=== PATIENT | female | born 1980 | race Caucasian/White ===

== ENCOUNTER 2017-05-06 10:55 | Observation (INO) | payer OTHER ==
[~2017-05-06] VITALS: Ht 162.6 cm; Wt 65.6 kg
--- NOTE | ~2017-05-06 | CO ---
Unit #: [id number] #: [id number] Patient: EDDI ELLISON [id number] [facility] [address] [facility]. [place], [place] [address] [id number] I MR#: [id number] NAME: EDDI ELLISON ROOM: 311 Age: 37 Sex: F Admission Date: 05/06/2017 : 1980 Attending Physician: Orquidea Calero M.D. Primary Care Physician: Primary Care Physician No Consultation Date: 05/07/2017 CONSULTATION REPORT REASON FOR CONSULTATION Overdose, altered mental status, delirium, confusion, polysubstance abuse. HISTORY OF PRESENT ILLNESS Toma Ellison is a 37-year-old female, seen in room 311 bed 1 on 05/07/2017 at [facility]. The patient dressed in hospital attire, lying comfortably in bed. The patient was receiving IV fluids. The patient reports that she had a seizure and that is why she is here, but the patient when asked about drug abuse reported that she has not used any drugs or alcohol. She reported that she was on multiple medication, but then she was incarcerated. After she was discharged, she was on no medication. The patient reported that she was on Vistaril, Remeron, Prozac, and Neurontin. The patient denied suicidal ideation or suicide attempt. The patient according to the intake report was found in room with unresponsive, possible IV drug abuse. The patient was staying with a friend at a hotel and the police was called for unresponsiveness. The patient was found unresponsive with a needle sticking to her left arm. The patient received Narcan and became awake. The patient's potassium was low 2.8 at the time of admission. The patient's urine drug screen was positive for multiple drugs, benzodiazepine, cocaine, amphetamine, marijuana, and opiate. The patient denied use of any IV drug use; however, the patient at this time denied any suicidal or homicidal ideation, but wanted to go back on her medication for depression and anxiety. PAST PSYCHIATRIC HISTORY Remarkable for history of depression and anxiety. The patient reports that she was on multiple drugs for that history of polysubstance abuse. The patient denied any inpatient psychiatric treatment. MEDICAL HISTORY AND MEDICATION HISTORY The patient is on Prozac, Humalog, Remeron, Combivent, Topamax, Xanax. Medical history is remarkable for history of insulin-dependent diabetes mellitus, anxiety, depression, polysubstance abuse. FAMILY HISTORY AND SOCIAL HISTORY Remarkable for poor support system. Denied any history of abuse. History of polysubstance abuse as mentioned above. REVIEW OF SYSTEMS Complete review of systems is unremarkable except as mentioned above. MENTAL STATUS EXAMINATION The patient's vital signs; temperature 98.3, pulse 61, respirations 16, Unit #: [id number] #: [id number] Patient: EDDI ELLISON blood pressure 96/53 oxygen saturation 99%. General appearance; the patient dressed casually. The patient's attention span and concentration, fair. Speech; regular rate and coherent. Oriented in time, place, and person. Mood and affect were labile. Thought process, coherent. Thought content, the patient denied any thoughts of harming self or others. Denied any hallucination. Recent and remote memory, fair. Language, intact. Fund of knowledge, fair. Insight and judgment, fair to slightly impaired. DIAGNOSES Psychiatric: Delirium, F05, resolved; opioid use disorder, severe, F11.20; amphetamine use disorder, severe, F15.20; cannabis abuse, moderate, F12.20. Secondary diagnosis: Deferred. Medical diagnosis: Please refer to H and P. Stressors: Psychosocial stressor. ASSESSMENT AND PLAN 1. Supportive psychotherapy and psychoeducation provided to the patient. 2. Educated about benefits and side effects of medication and course and prognosis of illness. 3. The patient currently denied any suicidal or homicidal ideation. Therefore, plan to stabilize the patient and consider a plan to follow up in outpatient program at [facility] in [facility] level of care. 4. Recommending to resume the patient's medication slowly such as Prozac 40 mg daily, but avoid Xanax because of history of substance abuse. Please feel free to call if any questions, telephone [phone]. Dictated by..Rajni Arce/milagros TD: 05/07/2017 20:28 JOB #: [id number] CONSULTATION REPORT Page 1 of 1 X Mark Chaudhary MD CONSULTATION REPORT
--- NOTE | ~2017-05-06 | EKG ---
PATIENT: EDDI ELLISON UNIT #: [id number] Ventricular Rate: 122 BPM Atrial Rate: 122 BPM P-R Interval: 122 ms QRS Duration: 86 ms Q-T Interval: 322 ms QTC Calculation(Bezet): 458 ms P [place]: 71 degrees Calculated R [place]: 44 degrees Calculated T [place]: 105 degrees Diagnosis Line: Sinus tachycardia Diagnosis Line: Nonspecific T wave abnormality Diagnosis Line: Abnormal ECG Diagnosis Line: When compared with ECG of 03-JUN-2016 13:44, Diagnosis Line: T wave inversion now evident in Lateral leads Diagnosis Line: Confirmed by MARILYN BARNES MD ([id number]) on Diagnosis Line: 05/06/2017 5:10:30 PM INTERPRETING MD: MOLLY VIGIL
--- NOTE | ~2017-05-06 | HP ---
Unit #: [id number] #: [id number] Patient: EDDI ELLISON [id number] [address] [place], [place] [address] [id number] I MR#: [id number] NAME: EDDI ELLISON ROOM: 311 Age: 37 Sex: F Admission Date: 05/06/2017 : 1980 Attending Physician: Michelle Hernandez M.D. Primary Care Physician: No Primary Care Physician HISTORY AND PHYSICAL CHIEF COMPLAINT Altered mental status. HISTORY OF PRESENT ILLNESS The patient is a 37-year-old female with a history of insulin-dependent diabetes and IV drug abuse, brought to the emergency room with unresponsiveness. The patient was staying with a friend at the hotel and the police were called for unresponsiveness. On arrival the patient was found unresponsive with the needle in the left arm. The patient received the Narcan and became more awake in the emergency room. The patient's potassium is low, down to 2.8 and patient is positive with the urine drug screen for benzodiazepines, cocaine, amphetamines, marijuana and opiates. The patient stated the patient is not using IV drugs for awhile and used the drugs by snorting the last few days. The patient is being admitted for the above reasons, denies any fever, denies any chills, denies any nausea and vomiting, feels weak. PAST MEDICAL HISTORY History of insulin dependent diabetes, anxiety, depression and polysubstance abuse. PAST SURGICAL HISTORY History of a , tonsillectomy, cholecystectomy. ALLERGIES No known drug allergies. HOME MEDICATION Prozac, Humalog, Remeron, Combivent, Topamax and Xanax. FAMILY HISTORY Positive for diabetes and coronary artery disease. SOCIAL HISTORY Patient smokes about half a pack per day, denies alcohol, injects heroin IV. REVIEW OF SYMPTOMS Positive for the drug abuse and weakness and denies any fever, denies any chills, denies any nausea and vomiting, denies any abdominal pain and other systems are reviewed and are negative. PHYSICAL EXAMINATION GENERAL APPEARANCE: On examination the patient is lying on a bed not in Unit #: [id number] #: [id number] Patient: EDDI ELLISON acute distress. VITAL SIGNS: Temperature 98.5, pulse 116, respiratory rate 11, blood pressure 131/85, sating 96% at room air. HEENT: Head atraumatic and normocephalic. Pupils equal, round and reacting to light and accommodation. Dry mucous membrane. NECK: Supple. LUNGS: Clear to auscultation bilaterally. HEART: Regular rate and rhythm. ABDOMEN: Soft, positive bowel sounds. EXTREMITIES: Positive for the track smith. NEUROLOGIC: Awake, alert and oriented. PSYCHIATRIC: Appears depressed. DIAGNOSTIC STUDIES LABORATORY DATA: Blood sugar is 151. Beta hCG is negative. Sodium 136, potassium 2.8, chloride 102, bicarb 25, glucose 156, BUN 15, creatinine 1, AST 154, ALT 46, alkaline phosphatase 55, WBC 20.2, hemoglobin 12.3, hematocrit 36.3, platelets 323, neutrophils 87%. Urine drug screen is positive for benzodiazepines, cocaine, amphetamines, marijuana and opiates. Lactic acid is 1. UA shows trace leukocyte esterase, 1+ protein, and urine WBCs 25 to 25, 1+ urine bacteria. IMAGING: Chest x-ray shows pulmonary hyperinflation, otherwise normal chest. ASSESSMENT 1. Altered mental status. 2. Polysubstance abuse. 3. Hypokalemia. 4. Probably urinary tract infection. PLAN Plan to admit to observation with the telemetry. Continue with IV antibiotics with the Rocephin, replace the potassium per protocol and will have the psych evaluation and continue with the low dose sliding scale and Accu-Cheks and hold the benzodiazepines and narcotics and further recommendations will follow. Dictated by Rajni Wiggins/cuauhtemoc TD: 05/06/2017 20:40 JOB #: [id number] Unit #: [id number] #: [id number] Patient: EDDI ELLISON HISTORY AND PHYSICAL Page 1 of 1 X MICHELLE HERNANDEZ MD HISTORY AND PHYSICAL
--- NOTE | ~2017-05-06 | DS ---
Unit #: [id number] #: [id number] Patient: EDDI ELLISON [id number] [address] [address] [id number] I MR#: [id number] NAME: EDDI ELLISON ROOM: 311 Age: 37 Sex: F Admission Date: 05/06/2017 : 1980 Discharge Date: 05/07/2017 Attending Physician: Orquidea Calero M.D. Primary Care Physician: No Primary Care Physician DISCHARGE SUMMARY PRINCIPAL DIAGNOSES 1. Metabolic encephalopathy secondary to number two. 2. Unintentional polysubstance overdose, including benzodiazepines, cocaine, amphetamine, marijuana and opiates. 3. Urinary tract infection with pending urine culture. 4. Hypokalemia. 5. Dtzyj-tf-mwnhoyi migraine headache. 6. Non anion gap metabolic acidosis. 7. Hyperkalemia. 8. Mild transaminitis with pending viral hepatitis panel. 9. Insulin dependent diabetes mellitus. 10. Anxiety and depression. 11. Tobaccoism. CONSULTANTS Dr. Chaudhary, psychiatry. DIAGNOSTIC DATA IMAGING: Chest x-ray on 05/06/2017 with pulmonary hyperinflation. Otherwise no acute findings. CLINICAL HISTORY/HOSPITAL COURSE Ms. Ellison is a 77-year-old female brought to the emergency department after being found unresponsive at a hotel with a needle in her arm. She did respond to Narcan and brought to the ICU for further evaluation. The patient demonstrated altered mental status in the emergency department. Blood work also revealed significant hypokalemia and the patient was subsequently placed in observation for evaluation. Today the patient is awake, alert and complaining of migraine headache. Otherwise she is eating and ambulating to the restroom. This morning, after being placed on IV fluids with potassium, she is mildly hyperkalemia. Fluids have been discontinued. The patient is pending repeat potassium level. I will note at this time the patient is currently receiving this lab. I am going to treat her migraine headache with a single dose of Imitrex and assuming headache is improved she can be discharged home later today. The patient was seen in consultation by Dr. Chaudhary, who recommended outpatient drug rehab. The patient also appears to have urinary tract infection on urinalysis, but urine culture is pending. She has been treated with Rocephin during hospitalization and will complete a total of three days of antibiotics on Unit #: [id number] #: [id number] Patient: EDDI ELLISON an outpatient basis. DISCHARGE CONDITION Stable. DISPOSITION Discharged to home. DISCHARGE MEDICATIONS 1. Bactrim DS 1 b.i.d. for 1 day. 2. Combivent Respimat 1-2 tablets b.i.d. p.r.n. shortness of air. 3. Topamax 200 mg b.i.d. 4. Prozac 40 mg daily. 5. Remeron 45 mg at bedtime. 6. Humalog sliding scale with meals. DIET The patient is instructed to follow a constant carb diet. ACTIVITY She can increase her activity as tolerated. She is to refrain from any further illicit drug use or tobacco use. FOLLOWUP The patient can follow up with Dr. Lynn in one week. Dictated by... Orquidea Calero M.D. MAILE/dayami TD: 05/08/2017 13:10 JOB #: [id number] DISCHARGE SUMMARY Page 1 of 1 X Orquidea Calero MD DISCHARGE SUMMARY
--- NOTE | ~2017-05-06 | CR72 ---
[facility] A Service of [facility] RADIOLOGY TEXT RESULTS PATIENT: EDDI ELLISON LOCATION: [facility] 311-01 : [birth year] UNIT #: [id number] AGE: [address]: Orquidea Calero MD SEX: F ORDER DR: [id number] [facility] [address]. [place], [place] [address] [id number] MR#: [id number] Acc #: [id number] NAME: EDDI ELLISON : 1980 SEX: F STUDY DATE/TIME: 05/06/2017 11:19 UNIT: NIKUNJ ROOM: STUDY DESCRIPTION: CR Chest Single View Portable Attending Physician: Marek Sen M.D. Ordering Physician: Marek Sen M.D. Primary Care Physician: No Primary Care Physician MEDICAL IMAGING REPORT This report is preliminary unless electronic signature is present EXAM Chest portable 05/06/2017 1119 hours HISTORY 37-year-old woman with shortness of air today, overdose for 1 day, altered mental status. History of asthma and smoking. COMPARISON 06/03/2016 FINDINGS Portable upright chest demonstrates normal cardiac, mediastinal and hilar contours. The lungs are hyperinflated but clear. No effusions. IMPRESSION Pulmonary hyperinflation otherwise normal chest. Dictated by... Florina Stock M.D. THIS IS AN ELECTRONICALLY VERIFIED REPORT Florina Stock M.D. at 05/07/2017 8:53 AM ELIN/kristofer TD: 05/06/2017 15:55 JOB #: [id number] MEDICAL IMAGING REPORT Page 1 of 1 COPY
[~2017-05-06 10:55] MED LIST: AMBIEN10 MG PO; BACTRIM DS TABL1 TA1 PO; CLEOCIN150 M1 PO; DAKIN'S MODIF1000 ML EXT; HUMALOG100 U/M1; HUMALOG100 U/M2 SUBQ; HUMALOG100 U/ML SUBQ; LANTUS100 U/ML; LANTUS100 U/ML SUBQ; LANTUS100 UNITS/ SUBQ; LEVAQUIN PO; LORTAB 7.5-3251 EACH PO; NEURONTIN800 MG PO; NICOTINE TRANSDE7 MG EXT; PROZAC40 M1 PO; PROZAC40 MG PO; REMERON45 MG PO; TOPAMAX PO; TYLENOL #3 PO; XANAX2 MG PO
[2017-05-06 11:43] LABS: BASOPHIL# 0.1 X10e3 (0-0.3); BASOPHIL% 0.2 % (0-2.5); EOSINOPHIL# 0.1 X10e3 (0-0.7); EOSINOPHIL% 0.3 % (0.0-7.0); HEMATOCRIT 36.3 % (35.0-45.0); HEMOGLOBIN 12.3 gm/dL (12.0-16.0); LYMPHOCYTE# 1.9 X10e3 (1.0-3.5); LYMPHOCYTE% 9.5 % (17.0-45.0); MEAN CELL VOLUME 88.1 FL (83-96); MEAN CORPUSCULAR HGB CONC 34.1 g/dL (30-36); MEAN PLATELET VOLUME 8.8 FL (6.5-11.5); MONOCYTE% 4.7 % (3.0-12.0); NEUTROPHIL# 17.3 X10e3 (1.5-7.1); NEUTROPHIL% 85.3 % (40-75); PLATELET COUNT 323 X10e3 (140-420); RED BLOOD COUNT 4.11 X10e (3.90-5.30); RED CELL DISTRIBUTION WIDTH 15.8 % (11.0-15.5); WHITE BLOOD COUNT 20.2 X10e3 (4.0-10.5)
[2017-05-06 11:44] LABS: DIFF IND YES
[2017-05-06 12:12] LABS: ALBUMIN SERUM 4.1 g/dL (3.5-5.0); BILIRUBIN, DIRECT 0.1 mg/dL (0.0-0.2); BILIRUBIN,INDIRECT 0.6 mg/dL (0.0-0.9); BILIRUBIN,TOTAL 0.7 mg/dL (0.2-2.0); CALCIUM SERUM 8.8 mg/dL (8.4-10.2); PROTEIN TOTAL SERUM 7.9 g/dL (6.0-8.3)
[2017-05-06 12:13] LABS: POTASSIUM 2.8 mmol/L (3.5-5.1)
[2017-05-06 13:00] LABS: ANISOCYTOSIS SL; PLATELET ESTIMATE NORMAL (NORMAL)
[2017-05-06 13:27] LABS: URINE SOURCE CLEAN CATCH
[2017-05-06 13:49] LABS: AMPHETAMINE POS (NEG); BARBITURATES NEG (NEG); BENZODIAZEPINES POS (NEG); COCAINE POS (NEG); MARIJUANA POS (NEG); OPIATES POS (NEG); TRICYCLIC ANTIDEPRESSANTS NEG (NEG); U METHADONE NEG (NEG)
[2017-05-06] MEDS ORDERED: PATIENT'S PHARMACY (14:10)
[2017-05-06] MEDS ORDERED: COMBIVENT RESPIM4 GM INH (14:10)
[2017-05-06] MEDS ORDERED: PROZAC40 M1 PO (14:10)
[2017-05-06] MEDS ORDERED: HUMALOG100 UNIT/1 (14:11)
[2017-05-06] MEDS ORDERED: TOPAMAX PO (14:11)
[2017-05-06] MEDS ORDERED: REMERON PO (14:11)
[2017-05-06] MEDS ORDERED: ALPRAZOLAM (14:13)
[2017-05-06 14:17] LABS: URINE APPEARANCE CLEAR; URINE BILIRUBIN NEG (NEG); URINE BLOOD 1+ (NEG); URINE COLOR YELLOW; URINE GLUCOSE NEG (NEG); URINE KETONE 1+ (NEG); URINE LEUKOCYTE ESTERASE TRACE (NEG); URINE NITRATE NEG (NEG); URINE PROTEIN 1+ (NEG); URINE SPECIFIC GRAVITY 1.022 (1.003-1.035); URINE UROBILINOGEN 0.2 MG/DL (NEG)
[2017-05-06 14:22] LABS: CULTURE INDICATED? YES; URINE BACTERIA AUWI 1+ (NEGATIVE); URINE SQUAMOUS EPITHELIAL CELL OCC /[HPF]; UWBCS1 AUWI 25-50 (0-5)
[2017-05-07 06:34] LABS: BASOPHIL% 0.5 % (0-2.5); EOSINOPHIL# 0.1 X10e3 (0-0.7); EOSINOPHIL% 1.6 % (0.0-7.0); HEMATOCRIT 27.2 % (35.0-45.0); LYMPHOCYTE# 3.2 X10e3 (1.0-3.5); LYMPHOCYTE% 38.6 % (17.0-45.0); MEAN CORPUSCULAR HEMOGLOBIN 30.5 PG (28-34); MEAN CORPUSCULAR HGB CONC 33.5 g/dL (30-36); MEAN PLATELET VOLUME 9.5 FL (6.5-11.5); MONOCYTE# 0.6 X10e3 (0-1.0); MONOCYTE% 7.3 % (3.0-12.0); NEUTROPHIL# 4.3 X10e3 (1.5-7.1); PLATELET COUNT 233 X10e3 (140-420); RED BLOOD COUNT 2.99 X10e (3.90-5.30); RED CELL DISTRIBUTION WIDTH 15.8 % (11.0-15.5)
[2017-05-07 06:50] LABS: CALCIUM SERUM 7.4 mg/dL (8.4-10.2); CREATININE SERUM 0.5 mg/dL (0.6-1.4); GLOM FILT RATE Estimated 125.4 mL/min (>60)
[2017-05-07 06:51] LABS: POTASSIUM 5.3 mmol/L (3.5-5.1)
[2017-05-07 07:05] LABS: DIFF IND NO; HEMOGLOBIN 9.1 gm/dL (12.0-16.0); WHITE BLOOD COUNT 8.2 X10e3 (4.0-10.5)
[2017-05-07] MEDS ORDERED: BACTRIM DS TAB1 EACH PO (17:01)
[2017-05-10 16:31] LABS: HA AB IGM (HEPPAN) Nonreactive (()); HB CORE AB IGM (HEPPAN) Nonreactive (Nonreactive); HB S AG (HEPPAN) Nonreactive (Nonreactive); HEP C AB (HEPPAN) Reactive (Nonreactive)
== END 2017-05-07 22:46 | disposition home or self-care (01) ==
LOC: CED 10:55 → CEDOF 17:20 → C3A PCU 17:20 → CED 18:00 → CEDOF 18:00 → C3A PCU 19:46
PROVIDERS: Emergency Medicine; Internal Medicine
DX: T42.4X1A Poisoning by benzodiazepines, accidental (unintentional), initial encounter (principal); T40.601A Poisoning by unspecified narcotics, accidental (unintentional), initial encounter; T40.5X1A Poisoning by cocaine, accidental (unintentional), initial encounter; T40.7X1A Poisoning by cannabis (derivatives), accidental (unintentional), initial encounter; G92 Toxic encephalopathy; F11.20 Opioid dependence, uncomplicated; F15.20 Other stimulant dependence, uncomplicated; F12.20 Cannabis dependence, uncomplicated; N39.0 Urinary tract infection, site not specified; E87.6 Hypokalemia; G43.909 Migraine, unspecified, not intractable, without status migrainosus; E87.2 Acidosis; R74.0 Nonspecific elevation of levels of transaminase and lactic acid dehydrogenase [LDH]; E11.9 Type 2 diabetes mellitus without complications; Z79.4 Long term (current) use of insulin; F41.8 Other specified anxiety disorders; F17.200 Nicotine dependence, unspecified, uncomplicated
CPT/HCPCS: 36415; 71010; 80048; 80074; 80076; 80307; 81003; 82947; 83605; 83735; 84132; 84703; 85025; 87040; 87086; 87522; 87806; 93005; 94640; 94760; 96361; 96365; 96366; 96372; 96375; 99285; G0378; J0696; J1650; J2543; J3030; J3370

== ENCOUNTER 2017-05-25 18:02 | Inpatient (IN) | payer OTHER ==
[~2017-05-25] VITALS: Ht 160 cm; Wt 59.0 kg
--- NOTE | ~2017-05-25 | CO ---
Unit #: [id number] #: [id number] Patient: EDDI ELLISON [id number] [address] [place], [place] [address] [id number] I MR#: [id number] NAME: EDDI ELLISON ROOM: 239 Age: 37 Sex: F Admission Date: 05/25/2017 : 1980 Attending Physician: Nolberto Skinner M.D. Primary Care Physician: Primary Care Physician No Consultation Date: 05/26/2017 CONSULTATION REPORT BRIEF HISTORY The patient is a 37-year-old lady, who engages in IV heroin who presents with left arm swelling, erythema and pain over the last 2 to 3 days. She presents with intermittent fevers and chills. PAST SURGICAL HISTORY section and cholecystectomy. MEDICATIONS Topamax, Prozac, Neurontin. SOCIAL HISTORY Does smoke. No alcohol. IV drug use daily. FAMILY HISTORY Negative for GI malignancy. REVIEW OF SYSTEMS No cardiopulmonary complaints at this time. Else, 10 systems reviewed and negative. PHYSICAL EXAMINATION GENERAL: She is awake, alert, appropriate, and currently uncomfortable. VITAL SIGNS: Afebrile. HEENT: Unremarkable. NECK: Supple. No JVD. Trachea midline. LUNGS: Clear to auscultation. Bilateral breath sounds symmetric. CARDIOVASCULAR: Regular rate and rhythm. ABDOMEN: Soft, nontender, and nondistended. I palpate no masses. No hepatosplenomegaly. EXTREMITIES: Show erythema in the left forearm with an area of fluctuance, measuring 15 cm x 8 cm. This is painful on examination. She has palpable distal pulses. DIAGNOSTIC STUDIES LABORATORY RESULTS: Show white count of 19. ASSESSMENT Left forearm abscess. PLAN Recommend IV antibiotics and will plan for drainage operatively. Unit #: [id number] #: [id number] Patient: EDDI ELLISON Dictated by... Rajni Jimenez/milagros TD: 05/26/2017 06:39 JOB #: [id number] CONSULTATION REPORT Page 1 of 1 X Nolberto Skinner MD X CONSULTATION REPORT
--- NOTE | ~2017-05-25 | DS ---
Unit #: [id number] #: [id number] Patient: EDDI ELLISON [id number] [address] [address] [id number] I MR#: [id number] NAME: EDDI ELLISON ROOM: 239 Age: 37 Sex: F Admission Date: 05/25/2017 : 1980 Discharge Date: 05/28/2017 Attending Physician: Nolberto Skinner M.D. Primary Care Physician: No Primary Care Physician DISCHARGE SUMMARY DISCHARGE DIAGNOSES Large drug induced abscess of the left forearm. OPERATIVE PROCEDURE Incision, drainage and debridement of the left forearm abscess. DISCHARGED MEDICATIONS Home medications plus: 1. Lortab 7.5 one p.o. q.4 hours p.r.n. pain. 2. Doxycycline 100 mg 1 p.o. b.i.d. antibiotics. 3. Dakin's 1/4 strength solution for dressing changes b.i.d. HISTORY OF PRESENT ILLNESS AND HOSPITAL COURSE This is a 37-year-old white female, IV drug abuse who has a large abscess on her left forearm. She was admitted at this time and she was taken to surgery after adequate preop evaluation. After this was done, she was noted to have a large abscess in her left forearm, which was open drained, cleaned and debrided per Dr. Delacruz. Postoperative course has been pretty much routine. Her cellulitis gradually decreased over 48 hours. She switched to oral antibiotics. Dressing changes being done twice a day. She was ready to be discharged on her home medications and on some pain medication, as well as oral antibiotics to be seen in the wound clinic at [facility]. She is to do no heavy lifting or strenuous activity. Dictated by... Rajni Langston/alexandria TD: 05/29/2017 09:54 JOB #: [id number] DISCHARGE SUMMARY Page 1 of 1 X Mayank Cunningham MD X DISCHARGE SUMMARY
--- NOTE | ~2017-05-25 | OR ---
Unit #: [id number] #: [id number] Patient: EDDI ELLISON [id number] [address] [address] [id number] I MR#: [id number] NAME: EDDI ELLISON ROOM: 239 Date of Procedure: 05/26/2017 Admission Date: 05/25/2017 Surgeon: Randy Delacruz M.D. : 1980 Attending Physician: Nolberto Skinner M.D. OPERATIVE REPORT PREOPERATIVE DIAGNOSIS Large abscess, left forearm. POSTOPERATIVE DIAGNOSIS Large abscess, left forearm. PROCEDURE PERFORMED Incision and drainage of large abscess, left forearm extensor surface. ANESTHESIA General LMA anesthesia with 0.5% Marcaine plain local anesthesia. FINDINGS The patient had a large abscess of the left forearm extensor surface. FLUIDS 500 mL of crystalloid. ESTIMATED BLOOD LOSS 25 mL. DRAINS None. TUBES None. SPECIMENS Sent to microbiology. COMPLICATIONS None apparent. CONDITION The patient tolerated the procedure well. INDICATIONS FOR PROCEDURE The patient is a 37-year-old female, who presents at this time after injecting herself with heroin in the left forearm and developing a large abscess. DESCRIPTION OF PROCEDURE Unit #: [id number] #: [id number] Patient: EDDI ELLISON After obtaining informed consent and receiving scheduled antibiotics, the patient was brought to the operating room and after adequate general LMA anesthesia was obtained, had her left forearm and lower arm prepped and draped in a sterile fashion. It was circumferentially prepped. An incision was made over the extensor surface and a large amount of purulent material was evacuated. The extension was extended the length of the abscess cavity. All loculations were broken up. The wound was irrigated. Hemostasis was obtained with Bovie and 3-0 Vicryl suture ligatures. The piece of Surgicel was placed in the base of the wound as there was some diffuse oozing. It was then packed with a saline soaked fluff and then dry dressings and Kerlix wrap. Needle counts, sponge counts, and instrument counts were all correct as reported by the scrub nurse x2. The patient went from the operating room to recovery room in stable condition. Dictated by... Rajni Becerra/milagros TD: 05/26/2017 11:56 JOB #: [id number] CC: [facility] OPERATIVE REPORT Page 1 of 1 X Randy Delacruz MD PROCEDURE OPERATIVE NOTE
[~2017-05-25 18:02] MED LIST changes: +ALPRAZOLAM; +BACTRIM DS TAB1 EACH PO; +COMBIVENT RESPIM4 GM INH; +HUMALOG100 UNIT/1; +PATIENT'S PHARMACY; +REMERON PO
[2017-05-25 19:05] LABS: URINE SOURCE CLEAN CATCH
[2017-05-25 19:18] LABS: URINE APPEARANCE TURBID; URINE BLOOD NEG (NEG); URINE COLOR DK YELLOW; URINE GLUCOSE NEG (NEG); URINE KETONE TRACE (NEG); URINE LEUKOCYTE ESTERASE 2+ (NEG); URINE NITRATE NEG (NEG); URINE PH 6.5 (5-8); URINE PROTEIN 1+ (NEG); URINE SPECIFIC GRAVITY 1.022 (1.003-1.035)
[2017-05-25] MEDS ORDERED: BACTRIM DS TAB1 EACH PO (19:18)
[2017-05-25] MEDS ORDERED: TOPAMAX200 MG PO (19:18)
[2017-05-25] MEDS ORDERED: REMERON45 MG PO (19:19)
[2017-05-25 19:20] LABS: BASOPHIL# 0.1 X10e3 (0-0.3); BASOPHIL% 0.4 % (0-2.5); EOSINOPHIL# 0.2 X10e3 (0-0.7); EOSINOPHIL% 0.8 % (0.0-7.0); HEMATOCRIT 32.4 % (35.0-45.0); HEMOGLOBIN 10.9 gm/dL (12.0-16.0); LYMPHOCYTE# 2.5 X10e3 (1.0-3.5); LYMPHOCYTE% 12.9 % (17.0-45.0); MEAN CELL VOLUME 87.5 FL (83-96); MEAN CORPUSCULAR HEMOGLOBIN 29.5 PG (28-34); MEAN CORPUSCULAR HGB CONC 33.7 g/dL (30-36); MONOCYTE# 1.5 X10e3 (0-1.0); MONOCYTE% 7.9 % (3.0-12.0); NEUTROPHIL# 15.2 X10e3 (1.5-7.1); PLATELET COUNT 549 X10e3 (140-420); RED BLOOD COUNT 3.71 X10e (3.90-5.30); RED CELL DISTRIBUTION WIDTH 14.5 % (11.0-15.5); WHITE BLOOD COUNT 19.6 X10e3 (4.0-10.5)
[2017-05-25 19:21] LABS: CULTURE INDICATED? YES; URINE BACTERIA AUWI 4+ (NEGATIVE); URINE SQUAMOUS EPITHELIAL CELL MANY /[HPF]; UWBCS1 AUWI 200-300 (0-5)
[2017-05-25 19:21] LABS: DIFF IND YES
[2017-05-25] MEDS ORDERED: PROZAC40 MG PO (19:21)
[2017-05-25] MEDS ORDERED: COMBIVENT RESPIM4 GM INH (19:22)
[2017-05-25] MEDS ORDERED: HUMALOG KW100 UNIT/1 SUBQ (19:23)
[2017-05-25 19:32] LABS: URINE BILIRUBIN NEG (NEG)
[2017-05-25 19:40] LABS: INR 1.1; PARTIAL THROMBOPLASTIN TIME 27.5 SECONDS (23.5-31.3)
[2017-05-25 19:40] LABS: AMPHETAMINE POS (NEG); BARBITURATES NEG (NEG); BENZODIAZEPINES NEG (NEG); COCAINE NEG (NEG); MARIJUANA NEG (NEG); OPIATES POS (NEG); TRICYCLIC ANTIDEPRESSANTS NEG (NEG); U METHADONE NEG (NEG)
[2017-05-25 19:46] LABS: BUN/CREATININE RATIO 7.14; CALCIUM SERUM 8.8 mg/dL (8.4-10.2); CREATININE SERUM 0.7 mg/dL (0.6-1.4); GLOM FILT RATE Estimated 112.3 mL/min (>60); POTASSIUM 3.1 mmol/L (3.5-5.1)
[2017-05-25 19:54] LABS: ANISOCYTOSIS SL; PLATELET ESTIMATE INCREASED (NORMAL); POIKILOCYTOSIS SL
[2017-05-26 14:14] LABS: MAGNESIUM 1.7 mg/dL (1.6-3.0); POTASSIUM 3.6 mmol/L (3.5-5.1)
[2017-05-27 17:04] LABS: BASOPHIL# 0.1 X10e3 (0-0.3); BASOPHIL% 0.8 % (0-2.5); EOSINOPHIL# 0.5 X10e3 (0-0.7); EOSINOPHIL% 4.6 % (0.0-7.0); HEMATOCRIT 27.3 % (35.0-45.0); HEMOGLOBIN 9.1 gm/dL (12.0-16.0); LYMPHOCYTE# 3.5 X10e3 (1.0-3.5); LYMPHOCYTE% 29.9 % (17.0-45.0); MEAN CELL VOLUME 88.7 FL (83-96); MEAN CORPUSCULAR HEMOGLOBIN 29.6 PG (28-34); MEAN CORPUSCULAR HGB CONC 33.3 g/dL (30-36); MEAN PLATELET VOLUME 8.2 FL (6.5-11.5); MONOCYTE# 0.7 X10e3 (0-1.0); NEUTROPHIL# 6.8 X10e3 (1.5-7.1); NEUTROPHIL% 58.7 % (40-75); PLATELET COUNT 501 X10e3 (140-420); RED BLOOD COUNT 3.08 X10e (3.90-5.30); RED CELL DISTRIBUTION WIDTH 14.8 % (11.0-15.5); WHITE BLOOD COUNT 11.5 X10e3 (4.0-10.5)
[2017-05-27 17:06] LABS: DIFF IND NO
[2017-05-27 17:28] LABS: BUN/CREATININE RATIO 6.25; CALCIUM SERUM 8.3 mg/dL (8.4-10.2); CREATININE SERUM 0.8 mg/dL (0.6-1.4); GLOM FILT RATE Estimated 95.6 mL/min (>60); POTASSIUM 4.3 mmol/L (3.5-5.1)
[2017-05-28] MEDS ORDERED: DAKIN'S MODIF1000 ML TOP (07:15)
[2017-05-28] MEDS ORDERED: LORTAB 7.5-3251 EACH PO (07:16)
[2017-05-28] MEDS ORDERED: DOXYCYCLINE PO (07:16)
== END 2017-05-28 18:11 | disposition home health service (06) | DRG 581 ==
LOC: CED 18:02 → C2A 20:16 → CED 20:16 → CEDOF 20:16 → CED 20:41 → C2A 20:41 → CEDOF 22:15 → C2A 05-28 18:11
PROVIDERS: Emergency Medicine; Surgery
PROC: 0J9H0ZZ Drainage of Left Lower Arm Subcutaneous Tissue and Fascia, Open Approach (ICD-10-PCS; principal; 2017-05-26 08:30)
DX: L02.414 Cutaneous abscess of left upper limb (principal); F11.10 Opioid abuse, uncomplicated; L03.114 Cellulitis of left upper limb; G40.909 Epilepsy, unspecified, not intractable, without status epilepticus; F17.210 Nicotine dependence, cigarettes, uncomplicated; J45.909 Unspecified asthma, uncomplicated; Z90.49 Acquired absence of other specified parts of digestive tract
CPT/HCPCS: 36415; 80048; 80202; 80307; 81003; 83735; 84132; 84703; 85025; 85610; 85730; 87040; 87070; 87075; 87086; 87205; 94640; 94760; 96365; 96367; 96375; 99284; J0131; J1170; J1885; J2250; J2270; J2405; J2543; J3010; J3370

== ENCOUNTER 2017-06-15 19:13 | Emergency (ER) | payer OTHER ==
[~2017-06-15 19:13] MED LIST changes: +DAKIN'S MODIF1000 ML TOP; +DOXYCYCLINE PO; +HUMALOG KW100 UNIT/1 SUBQ; +TOPAMAX200 MG PO
== END 2017-06-15 23:40 | disposition home or self-care (01) ==
LOC: CED 19:13
DX: F11.129 Opioid abuse with intoxication, unspecified (principal); L02.512 Cutaneous abscess of left hand; F17.210 Nicotine dependence, cigarettes, uncomplicated; Z79.899 Other long term (current) drug therapy
CPT/HCPCS: 82947; 99284